=== PATIENT | male | born 1955 | race Hispanic/Latino ===

== ENCOUNTER 2019-06-16 10:28 | Emergency (ER) | payer SELFPAY ==
[2019-06-16 10:33] VITALS: BP 142/93
[2019-06-16] MEDS ORDERED: RABAVERT RABIES VACCINE(PCEC) IM ONE (11:52)
--- NOTE | 2019-06-16 12:13 | Emergency Department Report ---
ED General Adult HPI - General Chief complaint: Animal Bite Stated complaint: RT SIDE BAT BITE/PAIN Time Seen by Provider: 06/16/19 12:09 Source: patient Mode of arrival: Ambulatory Limitations: No Limitations - History of Present Illness Initial comments: Patient presents to the emergency department after being attacked by a bat. Patient states she was on his way to work this morning when he noticed that he from his garage and one attacked him. -: Sudden Severity scale (0 -10): 0 Improves with: none Worsens with: none Associated Symptoms: denies other symptoms Treatments Prior to Arrival: none - Related Data Allergies Allergy/AdvReac Type Severity Reaction Status Date / Time No Known Allergies Allergy Verified 06/16/19 10:31 ED Review of Systems ROS: Stated complaint: RT SIDE BAT BITE/PAIN Other details as noted in HPI Comment: All other systems reviewed and negative Constitutional: denies: chills, fever Eyes: denies: eye pain, eye discharge, vision change ENT: denies: ear pain, throat pain Respiratory: denies: cough, shortness of breath, wheezing Cardiovascular: denies: chest pain, palpitations Endocrine: no symptoms reported Gastrointestinal: denies: abdominal pain, nausea, diarrhea Genitourinary: denies: urgency, dysuria Musculoskeletal: denies: back pain, joint swelling, arthralgia Skin: denies: rash, lesions Neurological: denies: headache, weakness, paresthesias Psychiatric: denies: anxiety, depression Hematological/Lymphatic: denies: easy bleeding, easy bruising ED Past Medical Hx - Past Medical History Previous Medical History?: No - Surgical History Past Surgical History?: No Hx Appendectomy: Yes - Social History Smoking Status: Never Smoker Substance Use Type: None ED Physical Exam - General Limitations: No Limitations General appearance: alert, in no apparent distress - Head Head exam: Present: atraumatic, normocephalic - Eye Eye exam: Present: normal appearance - ENT ENT exam: Present: mucous membranes moist - Neck Neck exam: Present: normal inspection - Respiratory Respiratory exam: Present: normal lung sounds bilaterally. Absent: respiratory distress - Cardiovascular Cardiovascular Exam: Present: regular rate, normal rhythm. Absent: systolic murmur, diastolic murmur, rubs, gallop - Rectal Rectal exam: Present: deferred - Extremities Exam Extremities exam: Present: normal inspection - Back Exam Back exam: Present: normal inspection - Neurological Exam Neurological exam: Present: alert, oriented X3, CN II-XII intact. Absent: motor sensory deficit - Psychiatric Psychiatric exam: Present: normal affect, normal mood - Skin Skin exam: Present: warm, dry, intact, normal color. Absent: rash ED Course Vital Signs 06/16/19 10:31 Temperature 98.1 F Pulse Rate 72 Respiratory 17 Rate Blood Pressure 142/93 O2 Sat by Pulse 98 Oximetry ED Medical Decision Making - Medical Decision Making Pulse exposure prophylaxis given in the ED including the vaccine and immunoglobulin was discussed with patient he is to return on day 3, 7, 14, and 28 for follow-up vaccines Critical care attestation.: If time is entered above; I have spent that time in minutes in the direct care of this critically ill patient, excluding procedure time. ED Disposition Clinical Impression: Contact with and exposure to rabies Disposition: DC-01 TO HOME OR SELFCARE Is pt being admited?: No Does the pt Need Aspirin: No Condition: Stable Instructions: Animal Bite (ED) Additional Instructions: return if worse Please return on day 3, 7, 14, 28 for remaining vaccines Referrals: PRIMARY CARE, [Referring] - 3-5 Days [facility] [Provider Group] - 3-5 Days [facility] [Provider Group] - 3-5 Days GEORGE OMER MD [Staff Physician] - 3-5 Days Time of Disposition: 13:09
== END 2019-06-16 13:34 | disposition home or self-care (01) ==
LOC: ED 10:28
DX: S01.151A Open bite of right eyelid and periocular area, initial encounter (principal); Z20.3 Contact with and (suspected) exposure to rabies; W55.81XA Bitten by other mammals, initial encounter; Z90.49 Acquired absence of other specified parts of digestive tract; Y93.89 Activity, other specified; Y92.69 Other specified industrial and construction area as the place of occurrence of the external cause; Y99.8 Other external cause status
CPT/HCPCS: 90375; 90471; 90675; 96372